=== PATIENT | male | born 1965 | race Caucasian/White ===

== ENCOUNTER 2018-12-23 17:35 | Emergency (ER) | payer OTHER ==
[~2018-12-23] VITALS: Ht 162.6 cm; Wt 72.0 kg
[2018-12-23 17:41] VITALS: BP 157/81; PULSE 81; RESP 18; Ht 162.6 cm; Wt 72.0 kg
[2018-12-23] MEDS ORDERED: KETOROLAC 60 MG INJ IM STA (20:10)
[2018-12-23] MEDS ORDERED: HYDR-4011 PO (20:18)
[2018-12-23] MEDS ORDERED: CYCL10TA7 PO (20:18)
[2018-12-23] MEDS ORDERED: NAPR-985 PO (20:18)
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
== END 2018-12-23 20:43 | disposition home or self-care (01) ==
LOC: FTE 17:35
DX: S16.1XXA Strain of muscle, fascia and tendon at neck level, initial encounter (principal); V49.59XA Passenger injured in collision with other motor vehicles in traffic accident, initial encounter
CPT/HCPCS: 96372; J1885; Z7502